=== PATIENT | male | born 1965 | race Caucasian/White ===

== ENCOUNTER 2019-08-02 11:32 | Emergency (ER) | payer SELFPAY ==
[2019-08-02 11:39] VITALS: BP 169/94; PULSE 90; RESP 16; TEMP 36.7; O2SAT 98; BMI 26.4
--- NOTE | 2019-08-02 11:40 | DI.RAD.S_ITS ---
PROCEDURE: XR CHEST 1V INDICATIONS: chest pain TECHNIQUE: One view of the chest was acquired. COMPARISON: None. FINDINGS: Surgical changes and devices: None. Lungs and pleura: Lungs are clear. No pleural effusions or pneumothorax. Mediastinum: Mediastinal contours appear normal. Heart size is normal. Bones and chest wall: No suspicious bony lesions. Overlying soft tissues appear unremarkable. IMPRESSION: No acute cardiopulmonary disease process. Dictated by: Mary Duff MD, PhD on 08/02/2019 at 12:25 Approved by: Mary Duff MD, PhD on 08/02/2019 at 12:26
--- NOTE | 2019-08-02 11:54 | ED.CHESTPAIN ---
HPI - Chest Pain General Chief Complaint: Chest Pain Stated Complaint: chest pressure 2-3 weeks,dizzy,tingle in arms Time Seen by Provider: 08/02/19 11:54 Source: patient Mode of arrival: Ambulatory Limitations: no limitations History of Present Illness HPI narrative: This is a 53-year-old male comes emergency department complaint of chest pain/pressure that is been going on for 2-3 weeks. The most recent episode started on Thursday and has been constant. He states that he also sometimes has some shortness of breath and feels a little dizzy with these episodes. Patient denies any syncope. He denies any clear exacerbating or alleviating factors other than stress does seem to sometimes make it worse and lying flat and resting sometimes seems to make it better. Patient states he has had some mild headache. He states that the chest pressure kind of radiates from substernal little bit to the right upper chest. Patient states that he gets sort of tingling in both arms. Sometimes left more than right. Patient denies any nausea, no vomiting. No issues with bowel movements or urination. He denies any radiation to the abdomen back or neck. He has had a recent cold with cough cold and congestion. He denies any fevers. Denies any swelling in his lower extremities. No no mass medical history, he does not take any medications regularly. He took 4 aspirin today. He does smoke tobacco, he drinks 2-3 shots of alcohol on days he is not working. Denies any illicit. He has a sister who is quite obese, she has had a history of brain aneurysm heart attacks starting in her 30s. He has 2 other sisters who are healthy but older and a sister that of breast cancer. He states he had a father who did have a mitral valve that ?exploded.? Related Data Allergies Allergy/AdvReac Type Severity Reaction Status Date / Time No Known Drug Allergies Allergy Verified 08/02/19 11:39 Review of Systems Review of Systems ROS Unobtainable: All systems reviewed & are unremarkable except as noted in HPI and below PFSH Social History Smoking Status: Current every day smoker Family History (Updated 08/02/19 @ 12:30 by Dariana Lomeli DO) Sister Hypothyroid Myocardial infarct Brain aneurysm Father No problems noted. Social History (Updated 08/02/19 @ 12:30 by Dariana C Mank, DO) Smoking Status: Current every day smoker alcohol intake: current substance use type: does not use Exam Narrative Exam Narrative: GENERAL: Alert and oriented x three, well-nourished, well-appearing male in no acute distress. HEENT: Head normocephalic, atraumatic, EOMI, pupils reactive, face symmetric, moist mucous membranes NECK: Supple, full range of motion CARDIOVASCULAR: Regular rate and rhythm without murmurs, rubs or gallops. Chest pain is not reproducible to palpation. No rash or skin changes. RESPIRATORY: Breath sounds equal bilaterally, no wheezes rales or rhonchi. ABDOMEN: Soft, nontender. Normoactive bowel sounds all 4 quadrants. No guarding or rebound, rigidity, no mass, no pulsatile mass. : No CVA tenderness EXTREMITIES: Normal range of motion, edema. 2+ pulses bilateral lower extremities. Neurovascularly intact NEUROLOGICAL: Cranial nerves II through XII grossly intact. Moving all extremities SKIN: Warm, dry, no petechiae, no rashes or lesions. Initial Vital Signs Initial Vital Signs: Vital Signs Temperature 98.1 F 08/02/19 11:39 Pulse Rate 90 08/02/19 11:39 Respiratory Rate 16 08/02/19 11:39 Blood Pressure 169/94 H 08/02/19 11:39 Pulse Oximetry 98 08/02/19 11:39 Scores HEART Score Heart Score history: Slightly Suspicious Heart Score EKG: Non-Specific repolarization disturbance Heart Score Age: 45-64 years old Heart Score risk factors: 1-2 risk factors (sister has heart history, 2 other sisters are healthy) Heart Score troponin: < or = to normal limit Heart Score Total: 3 Wells' Criteria for PE Clinical signs and symptoms of DVT: No PE is #1 Dx or equally likely: No Heart rate > 100: No Immobilization at least 3 days or surg in previous 4 weeks: No History of PE or DVT: No Hemoptysis: No Malignancy w/Treatment within 6 months or palliative: No Wells' PE Score total: 0 Course Orders Ordered: ED Orders 08/02/19 11:15 Complete Blood Count AUTO DIFF Stat Comprehensive Metabolic Panel Stat Lipase Stat Partial Thromboplastin Time Stat Prothrombin Time INR Stat Troponin & CK Cardiac Panel Stat 08/02/19 11:36 EKG-12 Lead Stat 08/02/19 11:40 XR chest 1V Stat 08/02/19 11:45 D Dimer Stat Discontinued Medications Al Hydrox/Mg Hydrox/Simethicone 20 ml/ Lidocaine HCl 15 ml 0 ml PO NOW ONE Stop: 08/02/19 12:34 Last Admin: 08/02/19 12:40 Dose: 15 ml Documented by: SCANAPO Vital Signs Vital signs: Vital Signs - 8 hr 08/02/19 11:39 08/02/19 12:52 08/02/19 13:00 Temperature 98.1 F Pulse Rate 90 73 77 Respiratory Rate 16 16 20 Blood Pressure 169/94 H Blood Pressure [Left Arm] 161/79 H 143/89 H Pulse Oximetry 98 99 96 08/02/19 13:50 Temperature Pulse Rate 76 Respiratory Rate 17 Blood Pressure 144/96 H Blood Pressure [Left Arm] Pulse Oximetry 97 MDM - Chest Pain Lab Data Attestation: I reviewed the patient's lab results. Result diagrams: 08/02/19 11:15 08/02/19 11:15 Labs: Lab Results 08/02/19 08/02/19 08/02/19 Range/Units 11:15 11:15 11:15 WBC 11.6 H (4.5-11.0) X10^3/uL RBC 4.96 (4.5-5.9) X10^6/uL Hgb 15.4 (13.5-17.5) g/dL Hct 45.7 (41-53) % MCV 92.1 (80-100) fL MCH 31.1 (26-34) PG MCHC 33.8 (30-36) % RDW 13.6 (11.6-14.8) % Plt Count 314 (150-400) X10^3/uL Neut % (Auto) 69.7 (50-75) % Lymph % (Auto) 22.1 L (25-40) % Weakley % (Auto) 6.8 (3-14) % Eos % (Auto) 0.5 L (2-4) % Baso % (Auto) 0.9 (0-2) % Neut # (Auto) 8100 H (2903-7062) /uL Lymph # (Auto) 2600 (4769-5791) /uL Weakley # (Auto) 800 (0-900) /uL Eos # (Auto) 100 (0-450) /uL Baso # (Auto) 100 (0-100) /uL PT 10.4 (10.1-12.7) SECONDS INR 0.9 (0.9-1.3) APTT 30 (26.4-36.2) SECONDS D-Dimer (<230) ng/mL Sodium 137 (137-145) mmol/L Potassium 4.2 (3.4-5.1) mmol/L Chloride 107 (98-107) mmol/L Carbon Dioxide 27 (22-32) mmol/L BUN 22 H (9-20) mg/dL Creatinine 1.00 (0.66-1.25) mg/dL Estimated GFR > 60.0 (>60) mL/min BUN/Creatinine Ratio 22.0 (6-22) Glucose 120 H (70-100) mg/dL Calcium 9.2 (8.4-10.2) mg/dL Total Bilirubin 0.4 (0.2-1.3) mg/dL AST 21 (17-59) IU/L ALT 22 (21-72) IU/L Alkaline Phosphatase 67 (38-126) U/L Total Creatine Kinase 67 (55-170) U/L CK-MB (CK-2) TNP CK-MB (CK-2) Rel Index TNP Troponin I < 0.012 (0.01-0.034) ng/mL Total Protein 6.8 (6.3-8.2) g/dL Albumin 3.9 (3.5-5.0) g/dL Globulin 2.9 (1.7-4.1) g/dL Albumin/Globulin Ratio 1.3 (1.0-2.8) Lipase 125 (23-300) U/L 08/02/19 Range/Units 11:45 WBC (4.5-11.0) X10^3/uL RBC (4.5-5.9) X10^6/uL Hgb (13.5-17.5) g/dL Hct (41-53) % MCV (80-100) fL MCH (26-34) PG MCHC (30-36) % RDW (11.6-14.8) % Plt Count (150-400) X10^3/uL Neut % (Auto) (50-75) % Lymph % (Auto) (25-40) % Weakley % (Auto) (3-14) % Eos % (Auto) (2-4) % Baso % (Auto) (0-2) % Neut # (Auto) (3917-8255) /uL Lymph # (Auto) (0680-3920) /uL Weakley # (Auto) (0-900) /uL Eos # (Auto) (0-450) /uL Baso # (Auto) (0-100) /uL PT (10.1-12.7) SECONDS INR (0.9-1.3) APTT (26.4-36.2) SECONDS D-Dimer 232 H (<230) ng/mL Sodium (137-145) mmol/L Potassium (3.4-5.1) mmol/L Chloride (98-107) mmol/L Carbon Dioxide (22-32) mmol/L BUN (9-20) mg/dL Creatinine (0.66-1.25) mg/dL Estimated GFR (>60) mL/min BUN/Creatinine Ratio (6-22) Glucose (70-100) mg/dL Calcium (8.4-10.2) mg/dL Total Bilirubin (0.2-1.3) mg/dL AST (17-59) IU/L ALT (21-72) IU/L Alkaline Phosphatase (38-126) U/L Total Creatine Kinase (55-170) U/L CK-MB (CK-2) CK-MB (CK-2) Rel Index Troponin I (0.01-0.034) ng/mL Total Protein (6.3-8.2) g/dL Albumin (3.5-5.0) g/dL Globulin (1.7-4.1) g/dL Albumin/Globulin Ratio (1.0-2.8) Lipase (23-300) U/L Imaging Data Chest x-ray: Radiologist's impression: [address] [address] XRay Report Signed Patient: Yohan Chu WMR#: [id number] : 1965Acct:[id number] Age/Sex: 53 / MDate of Service: 08/02/19 Loc: ED Accession Number: [id number] Procedure: XR chest 1V Ordering Provider: Dariana Lomeli D.O. PROCEDURE: XR CHEST 1V INDICATIONS: chest pain TECHNIQUE: One view of the chest was acquired. COMPARISON: None. FINDINGS: Surgical changes and devices: None. Lungs and pleura: Lungs are clear. No pleural effusions or pneumothorax. Mediastinum: Mediastinal contours appear normal. Heart size is normal. Bones and chest wall: No suspicious bony lesions. Overlying soft tissues appear unremarkable. IMPRESSION: No acute cardiopulmonary disease process. Dictated by: Mary Duff MD, PhD on 08/02/2019 at 12:25 Approved by: Mayr Duff MD, PhD on 08/02/2019 at 12:26 ECG Data Attestation: I personally reviewed and interpreted this ECG as follows: Prior ECG tracings: not available for review Interpretation: Sinus rhythm rate 81 NM 143 QRS of 98 QTC of 390. Nonspecific ST change. No prior EKGs available. MDM Narrative Medical decision making narrative: patient ddimer is within age related cutoff of 260. Patient has elevated white count 11.6, low limits and neutrophils of 8100, coags are otherwise normal, BUN is 22 with a glucose of 120 but otherwise normal troponin, LFTs and electrolytes. Patient's chest x-ray is negative. Discussed with patient I would recommend that he follow up with primary care. Evaluated after GI cocktail and he finds that it is resolved. Patient I discussed the could be potential other causes. He does have some cardiac risk factor with his family history. And patient's initial blood pressure was elevated although on repeat was improving discussed with patient he would probably benefit from some stress testing, patient will need to follow up. He also plans to take an aspirin daily until seen. Discharge Plan Departure Patient Disposition: Home Clinical Impression: Atypical chest pain Discharge Date/Time: 08/02/19 13:50 Instructions: DI for Atypical Chest Pain Activity Restrictions/Additional Instructions: Follow-up with primary care in the next 2-3 days for recheck. Call for an appointment. I would discuss getting stress testing with your primary care physician. You may call [phone] for the health human resources training manager who will such you up with a primary care option. Return to the emergency department for new or worsening symptoms, lightheadedness, passing out, new chest pain or or pressure, worsening shortness of breath, coughing up blood persistent vomiting, black or bloody stools or other new or concerning symptoms.
[2019-08-02 11:59] LABS: Add Manual Diff / Slide Review NO; Basophils Absolute Auto 100 /uL (0-100); Basophils Percent Auto 0.9 % (0-2); Eosinophils Absolute Auto 100 /uL (0-450); Eosinophils Percent Auto 0.5 % (2-4); Hematocrit 45.7 % (41-53); Hemoglobin 15.4 g/dL (13.5-17.5); Lymphocytes Absolute Auto 2600 /uL (1100-4500); Lymphocytes Percent Auto 22.1 % (25-40); Mean Corpuscular HGB Conc 33.8 % (30-36); Mean Corpuscular Hemoglobin 31.1 PG (26-34); Mean Corpuscular Volume 92.1 fL (80-100); Monocytes Absolute Auto 800 /uL (0-900); Monocytes Percent Auto 6.8 % (3-14); Neutrophils Absolute Auto 8100 /uL (1500-7000); Neutrophils Percent Auto 69.7 % (50-75); Platelet Count 314 X10^3/uL (150-400); Red Blood Cell Count 4.96 X10^6/uL (4.5-5.9); Red Cell Distribution Width 13.6 % (11.6-14.8); White Blood Cell Count 11.6 X10^3/uL (4.5-11.0)
[2019-08-02 12:06] LABS: INR 0.9 (0.9-1.3); Prothrombin Time 10.4 SECONDS (10.1-12.7)
[2019-08-02 12:09] LABS: PTT Partial Thromboplastin Tim 30 SECONDS (26.4-36.2)
[2019-08-02 12:10] LABS: Alanine Aminotransferase 22 IU/L (21-72); Albumin 3.9 g/dL (3.5-5.0); Albumin Globulin Ratio 1.3 (1.0-2.8); Alkaline Phosphatase 67 U/L (38-126); Aspartate Aminotransferase 21 IU/L (17-59); Bilirubin Total 0.4 mg/dL (0.2-1.3); Blood Urea Nitrogen 22 mg/dL (9-20); Calcium 9.2 mg/dL (8.4-10.2); Carbon Dioxide 27 mmol/L (22-32); Chloride 107 mmol/L (98-107); Creatine Kinase 67 U/L (55-170); Estimated Glomerular Filt Rate > 60.0 mL/min (>60); Globulin 2.9 g/dL (1.7-4.1); Glucose 120 mg/dL (70-100); HEMOLYSIS < 15 (0-50); Lipase 125 U/L (23-300); Potassium 4.2 mmol/L (3.4-5.1); Sodium 137 mmol/L (137-145); Total Protein 6.8 g/dL (6.3-8.2)
[2019-08-02 12:22] LABS: Troponin I < 0.012 ng/mL (0.01-0.034)
[2019-08-02] MEDS: MAG HYDROX/ALUMINUM/SIMETH SUS 20 ML, LIDOCAINE VISCOUS 2% 15 ML PO (12:40)
[2019-08-02 12:43] LABS: D Dimer 232 ng/mL (<230)
[2019-08-02 12:52] VITALS: BP 161/79; PULSE 73; RESP 16; O2SAT 99
[2019-08-02 13:00] VITALS: BP 143/89; PULSE 77; RESP 20; O2SAT 96
[2019-08-02 13:50] VITALS: BP 144/96; PULSE 76; RESP 17; O2SAT 97
== END 2019-08-02 13:50 | disposition home or self-care (01) ==
PROVIDERS: Emergency Provider Emergency Medicine
DX: R07.89 Other chest pain (principal); R06.02 Shortness of breath; R42 Dizziness and giddiness
CPT/HCPCS: 36415; 71045; 80053; 82550; 83690; 84484; 85025; 85379; 85610; 85730; 93005; 93041; 99283; 99285